=== PATIENT | female | born 1935 | race African-American/Black ===

== ENCOUNTER 2016-12-26 21:48 | Inpatient (IN) | payer MEDICARE, MEDICAID ==
[~2016-12-26] VITALS: Ht 157.5 cm; Wt 67.1 kg
[2016-12-26 23:30] VITALS: BP 133/78
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
[2016-12-27] MEDS ORDERED: MAG HYDROX/AL HYDROX/SIMETH 30 ML UDC PO PRN
[2016-12-27] MEDS ORDERED: ACETAMINOPHEN 325 MG TABLET PO PRN
[2016-12-27] MEDS ORDERED: LORAZEPAM 0.5 MG TABLET PO PRN
[2016-12-27] MEDS ORDERED: MAGNESIUM HYDROXIDE 30 ML UDC PO PRN
[2016-12-27] MEDS ORDERED: ALPR0.255 PO (00:27)
[2016-12-27] MEDS ORDERED: AMLO10TA4 PO (00:28)
[2016-12-27] MEDS ORDERED: ATOR10TA PO (00:31)
[2016-12-27] MEDS ORDERED: BUPR100T6 PO (00:31)
[2016-12-27] MEDS ORDERED: FURO-145 PO (00:32)
[2016-12-27] MEDS ORDERED: HYDR25TA4 PO (00:33)
[2016-12-27] MEDS ORDERED: MELO-264 PO (00:34)
[2016-12-27] MEDS ORDERED: LISI-607 PO (00:34)
[2016-12-27] MEDS ORDERED: MEMA10TA PO (00:35)
[2016-12-27] MEDS ORDERED: METF500T4 PO (00:36)
[2016-12-27] MEDS ORDERED: METO-304 PO (00:37)
[2016-12-27] MEDS ORDERED: NITR0.4T SL (00:38)
[2016-12-27] MEDS ORDERED: QUET25TA PO (00:39)
[2016-12-27] MEDS ORDERED: NITROGLYCERIN 0.4 MG/TAB BOTTLE SL PRN (01:00)
[2016-12-27 06:38] LABS: BASOPHILS % (AUTO) 0.2 % (0.0-2.0); HEMATOCRIT 33 % (33-45); HEMOGLOBIN 11.2 g/dL (11.5-14.8); LYMPHOCYTES # (AUTO) 0.8 /CMM (0.8-4.8); LYMPHOCYTES % (AUTO) 20.5 % (20.0-44.0); MEAN CORPUSCULAR HEMOGLOBIN 30 PG (26.0-33.0); MEAN CORPUSCULAR HGB CONC 34 g/dl (31.0-36.0); MEAN CORPUSCULAR VOLUME 88 fL (82-100); MONOCYTES # (AUTO) 0.5 /CMM (0.1-1.30); MONOCYTES % (AUTO) 12.1 % (2.0-12.0); NEUTROPHILS # (AUTO) 2.6 /CMM (1.8-8.9); NEUTROPHILS % (AUTO) 66.2 % (43.0-81.0); PLATELET COUNT (AUTO) 174 /CMM (150-450); RDW COEFFICIENT OF VARIATION 15.5 (11.5-15.0); RED BLOOD CELL COUNT(AUTO) 3.77 MIL/uL (4.0-5.2); WHITE BLOOD COUNT (AUTO) 3.9 K/uL (4.3-11.0)
[2016-12-27 06:47] LABS: CHOLESTEROL 171 mg/dL (<200); HDL CHOLESTEROL 59 mg/dL (40-60); LDL 102 mg/dL (0-99); TRIGLYCERIDES 32 mg/dL (30-150)
[2016-12-27 07:16] LABS: ALANINE AMINOTRANSFERASE 18 U/L (12-78); ALBUMIN 3.5 g/dL (3.4-5.0); ALKALINE PHOSPHATASE 74 U/L (46-116); ASPARTATE AMINOTRANSFERASE 17 U/L (15-37); BILIRUBIN,TOTAL 0.6 mg/dL (0.2-1.0); CALCIUM, SERUM 9.8 mg/dL (8.5-10.1); CARBON DIOXIDE 27 mmol/L (21-32); CHLORIDE 110 mmol/L (98-107); GLUCOSE 82 mg/dL (74-106); POTASSIUM 3.5 mmol/L (3.5-5.1); SODIUM SERUM 148 mmol/L (136-145); TOTAL PROTEIN, SERUM 7.2 g/dL (6.4-8.2); UREA NITROGEN, BLOOD 15 mg/dL (7-18)
[2016-12-27 08:15] VITALS: BP 110/78
[2016-12-27] MEDS: METFORMIN 500 MG TABLET PO SCH ×2 (09:23→17:17)
[2016-12-27] MEDS: FUROSEMIDE 20 MG TABLET PO SCH (09:23)
[2016-12-27] MEDS: ATORVASTATIN 10 MG TABLET PO SCH (09:23)
[2016-12-27] MEDS: AMLODIPINE BESYLATE 10 MG TABLET PO SCH (09:24)
[2016-12-27] MEDS: LISINOPRIL (5MG) 5 MG TABLET PO SCH (09:25)
[2016-12-27] MEDS: METOPROLOL SUCCINATE 50 MG TAB.SR.24H PO SCH (09:25)
[2016-12-27] MEDS: MELOXICAM 7.5 MG TABLET PO SCH (09:31)
[2016-12-27 15:56] VITALS: BP 101/61
--- NOTE | 2016-12-27 16:12 | NUR ---
Initial Discharge Plan Patient lives at [id number] [place] [address], [address] [place] [address] and wishes to return upon discharge. VALENTINE attemped to contact patient's daughter, Micki Jefferson at [phone], but was unable to get a hold of her. VALENTINE left a voicemail with detailed contact information. VALENTINE will work with MD and care team to form a safe and proper discharge. VALENTINE will also provide referrals to [facility] for patient,as she is a smoker.
[2016-12-27 20:11] VITALS: BP 91/53
[2016-12-27] MEDS: DIVALPROEX SODIUM 125 MG TABLET.DR PO SCH (21:49)
[2016-12-27] MEDS: QUETIAPINE FUMARATE 25 MG TABLET PO SCH (21:49)
[2016-12-28 07:39] LABS: BASOPHILS % (AUTO) 0.3 % (0.0-2.0); EOSINOPHILS # (AUTO) 0.1 /CMM (0.0-0.7); EOSINOPHILS % (AUTO) 1.6 % (0.0-6.0); HEMATOCRIT 31 % (33-45); HEMOGLOBIN 10.4 g/dL (11.5-14.8); LYMPHOCYTES # (AUTO) 0.8 /CMM (0.8-4.8); LYMPHOCYTES % (AUTO) 23.5 % (20.0-44.0); MEAN CORPUSCULAR HEMOGLOBIN 30 PG (26.0-33.0); MEAN CORPUSCULAR HGB CONC 34 g/dl (31.0-36.0); MEAN CORPUSCULAR VOLUME 88 fL (82-100); MONOCYTES # (AUTO) 0.5 /CMM (0.1-1.30); MONOCYTES % (AUTO) 13.5 % (2.0-12.0); NEUTROPHILS # (AUTO) 2.1 /CMM (1.8-8.9); NEUTROPHILS % (AUTO) 61.1 % (43.0-81.0); PLATELET COUNT (AUTO) 162 /CMM (150-450); RDW COEFFICIENT OF VARIATION 15.2 (11.5-15.0); RED BLOOD CELL COUNT(AUTO) 3.52 MIL/uL (4.0-5.2); WHITE BLOOD COUNT (AUTO) 3.4 K/uL (4.3-11.0)
[2016-12-28 08:01] LABS: CALCIUM, SERUM 9.3 mg/dL (8.5-10.1); CARBON DIOXIDE 28 mmol/L (21-32); CHLORIDE 105 mmol/L (98-107); CREATININE 1.1 mg/dL (0.6-1.3); GLUCOSE 75 mg/dL (74-106); MAGNESIUM 1.6 mg/dL (1.8-2.4); PHOSPHORUS 2.6 mg/dL (2.5-4.9); SODIUM SERUM 140 mmol/L (136-145); UREA NITROGEN, BLOOD 17 mg/dL (7-18)
[2016-12-28 08:12] VITALS: BP 98/58
[2016-12-28] MEDS: DIVALPROEX SODIUM 125 MG TABLET.DR PO SCH ×2 (08:35→21:01)
[2016-12-28] MEDS: FUROSEMIDE 20 MG TABLET PO SCH (08:36)
[2016-12-28] MEDS: ATORVASTATIN 10 MG TABLET PO SCH (08:36)
[2016-12-28] MEDS: MELOXICAM 7.5 MG TABLET PO SCH (08:36)
[2016-12-28] MEDS: AMLODIPINE BESYLATE 10 MG TABLET PO SCH (09:00)
[2016-12-28] MEDS ORDERED: NICOTINE PATCH (14MG) 14 MG PATCH.TD24 TD SCH ×2 (09:00)
[2016-12-28] MEDS: NICOTINE PATCH (7MG) 7 MG PATCH.TD24 TD SCH (09:50)
[2016-12-28] MEDS: LISINOPRIL (5MG) 5 MG TABLET PO SCH (10:00)
[2016-12-28] MEDS: METOPROLOL SUCCINATE 50 MG TAB.SR.24H PO SCH (10:00)
[2016-12-28] MEDS: METFORMIN 500 MG TABLET PO SCH ×2 (10:28→16:27)
[2016-12-28 10:30] LABS: EOSINOPHILS % (MANUAL) 2 % (0-4); LYMPHOCYTES % (MANUAL) 19 % (16-48); MONOCYTES % (MANUAL) 12 % (0-11.0); NEUTROPHILS % (MANUAL) 67 (42-76)
[2016-12-28] MEDS ORDERED: MAGNESIUM OXIDE 400 MG TABLET PO ONE (11:30)
--- NOTE | 2016-12-28 15:31 | NUR ---
VALENTINE spoke to pt's daughter Micki Jefferson at [phone] who stated that she cannot take care of her mother any longer due to her increased needs, as well as agitated behavior. She requested that SW look into facilities in the [facility]. VALENTINE faxed over the following facilities: [facility] Address: [address] [place] [address] [facility] [address] [place] [address] fax: [phone] [facility] Address: [address] [place] [address] fax: [phone] VALENTINE will follow up in the morning.
--- NOTE | 2016-12-28 15:55 | NUR ---
SW heard back from Shirley from [facility] [address], [place], [place] [id number] fax: [phone] who stated that their facility does not have a behavioral unit. However, Shirley stated that she will forward the inquiry to their sister facility in [place], who does accept psych patients.
[2016-12-28 16:00] VITALS: BP 95/59
[2016-12-28 19:57] VITALS: BP 117/60
[2016-12-28] MEDS: QUETIAPINE FUMARATE 25 MG TABLET PO SCH (21:01)
[2016-12-28] MEDS: TEMAZEPAM 7.5 MG CAPSULE PO PRN (21:02)
[2016-12-29] MEDS: METFORMIN 500 MG TABLET PO SCH ×2 (08:35→16:31)
[2016-12-29] MEDS: NICOTINE PATCH (7MG) 7 MG PATCH.TD24 TD SCH (08:35)
[2016-12-29] MEDS: ATORVASTATIN 10 MG TABLET PO SCH (08:35)
[2016-12-29] MEDS: FUROSEMIDE 20 MG TABLET PO SCH (08:35)
[2016-12-29] MEDS: LISINOPRIL (5MG) 5 MG TABLET PO SCH (08:36)
[2016-12-29] MEDS: METOPROLOL SUCCINATE 50 MG TAB.SR.24H PO SCH (08:36)
[2016-12-29] MEDS: MELOXICAM 7.5 MG TABLET PO SCH (08:36)
[2016-12-29] MEDS: DIVALPROEX SODIUM 125 MG TABLET.DR PO SCH ×2 (08:36→21:38)
[2016-12-29] MEDS: AMLODIPINE BESYLATE 10 MG TABLET PO SCH (08:37)
[2016-12-29 08:48] VITALS: BP 104/70
[2016-12-29 09:12] LABS: CALCIUM, SERUM 10.1 mg/dL (8.5-10.1); CARBON DIOXIDE 29 mmol/L (21-32); CHLORIDE 104 mmol/L (98-107); GLUCOSE 89 mg/dL (74-106); MAGNESIUM 1.8 mg/dL (1.8-2.4); POTASSIUM 4.2 mmol/L (3.5-5.1); SODIUM SERUM 141 mmol/L (136-145); UREA NITROGEN, BLOOD 18 mg/dL (7-18)
--- NOTE | 2016-12-29 10:38 | NUR ---
Pt's daughter Micki Jefferson at [phone] contacted SW and stated that the family is now willing to take patient home, but asked SW to provide resources for SNFs, adult daycare facilities and community resources. SW will provide. Micki stated that she can pick her mother up at 5pm on Monday.
[2016-12-29 16:23] VITALS: BP 114/67
[2016-12-29] MEDS: QUETIAPINE FUMARATE 25 MG TABLET PO SCH (21:38)
[2016-12-29] MEDS: TEMAZEPAM 7.5 MG CAPSULE PO PRN (21:38)
[2016-12-30 08:00] VITALS: BP 152/84
[2016-12-30] MEDS: MELOXICAM 7.5 MG TABLET PO SCH (09:25)
[2016-12-30] MEDS: METFORMIN 500 MG TABLET PO SCH ×2 (09:25→16:06)
[2016-12-30] MEDS: ATORVASTATIN 10 MG TABLET PO SCH (09:25)
[2016-12-30] MEDS: NICOTINE PATCH (7MG) 7 MG PATCH.TD24 TD SCH (09:25)
[2016-12-30] MEDS: DIVALPROEX SODIUM 125 MG TABLET.DR PO SCH ×2 (09:25→21:40)
[2016-12-30] MEDS: FUROSEMIDE 20 MG TABLET PO SCH (09:26)
[2016-12-30] MEDS: AMLODIPINE BESYLATE 10 MG TABLET PO SCH (09:27)
[2016-12-30] MEDS: METOPROLOL SUCCINATE 50 MG TAB.SR.24H PO SCH (09:27)
[2016-12-30] MEDS: LISINOPRIL (5MG) 5 MG TABLET PO SCH (09:28)
[2016-12-30] MEDS: TEMAZEPAM 7.5 MG CAPSULE PO PRN (21:40)
[2016-12-30] MEDS: QUETIAPINE FUMARATE 25 MG TABLET PO SCH (21:40)
--- NOTE | 2016-12-30 22:40 | NUR ---
GPS-RN PT'S BLOOD PRESSURE 75/58 [facility]. FLUIDS GIVEN. PT TOLERATED WELL. PLACED PT ON [place] POSITION. PAGED DR. DRAPER REGARDING PT'S CONDITION. AWAITING TO CALL BACK. WILL CONTINUE TO MONITOR FOR SAFETY.
--- NOTE | 2016-12-30 23:07 | NUR ---
GPS RN SPOKE TO DR. DRAPER. ORDERED TO HOLD METOPROLOL 50MG PO, LASIX 20MG PO AT 0900AM. RECHECK BLOOD PRESSURE AFTER AN HOUR. NOTED AND CARRIED OUT. WILL CONTINUE TO MONITOR.
[2016-12-31 08:00] VITALS: BP 120/70
[2016-12-31] MEDS: NICOTINE PATCH (7MG) 7 MG PATCH.TD24 TD SCH (08:42)
[2016-12-31] MEDS: METFORMIN 500 MG TABLET PO SCH ×2 (08:43→18:17)
[2016-12-31] MEDS: ATORVASTATIN 10 MG TABLET PO SCH (08:43)
[2016-12-31] MEDS: DIVALPROEX SODIUM 125 MG TABLET.DR PO SCH ×3 (08:43→21:36)
[2016-12-31] MEDS: LISINOPRIL (5MG) 5 MG TABLET PO SCH (08:43)
[2016-12-31] MEDS: FUROSEMIDE 20 MG TABLET PO SCH (08:43)
[2016-12-31] MEDS: MELOXICAM 7.5 MG TABLET PO SCH (08:43)
[2016-12-31] MEDS: METOPROLOL SUCCINATE 50 MG TAB.SR.24H PO SCH (08:44)
[2016-12-31] MEDS: AMLODIPINE BESYLATE 10 MG TABLET PO SCH (08:45)
[2016-12-31 16:00] VITALS: BP 94/57
[2016-12-31 20:00] VITALS: BP 125/78
[2016-12-31] MEDS: QUETIAPINE FUMARATE 25 MG TABLET PO SCH (21:36)
[2017-01-01 08:00] VITALS: BP 124/79
[2017-01-01] MEDS: METOPROLOL SUCCINATE 50 MG TAB.SR.24H PO SCH (09:00)
[2017-01-01] MEDS: FUROSEMIDE 20 MG TABLET PO SCH (09:34)
[2017-01-01] MEDS: NICOTINE PATCH (7MG) 7 MG PATCH.TD24 TD SCH (09:34)
[2017-01-01] MEDS: METFORMIN 500 MG TABLET PO SCH ×2 (09:34→16:45)
[2017-01-01] MEDS: MELOXICAM 7.5 MG TABLET PO SCH (09:34)
[2017-01-01] MEDS: DIVALPROEX SODIUM 125 MG TABLET.DR PO SCH ×3 (09:34→21:15)
[2017-01-01] MEDS: ATORVASTATIN 10 MG TABLET PO SCH (09:34)
[2017-01-01] MEDS: LISINOPRIL (5MG) 5 MG TABLET PO SCH (09:35)
[2017-01-01] MEDS: AMLODIPINE BESYLATE 10 MG TABLET PO SCH (09:35)
[2017-01-01 16:00] VITALS: BP 101/56
[2017-01-01] MEDS: QUETIAPINE FUMARATE 25 MG TABLET PO SCH (21:15)
[2017-01-01 22:52] VITALS: BP 118/85
[2017-01-02 08:00] VITALS: BP 160/93
[2017-01-02] MEDS: DIVALPROEX SODIUM 125 MG TABLET.DR PO SCH ×3 (08:08→21:47)
[2017-01-02] MEDS: FUROSEMIDE 20 MG TABLET PO SCH (08:08)
[2017-01-02] MEDS: ATORVASTATIN 10 MG TABLET PO SCH (08:09)
[2017-01-02] MEDS: METFORMIN 500 MG TABLET PO SCH ×2 (08:09→16:17)
[2017-01-02] MEDS: MELOXICAM 7.5 MG TABLET PO SCH (08:09)
[2017-01-02] MEDS: AMLODIPINE BESYLATE 10 MG TABLET PO SCH (08:09)
[2017-01-02] MEDS: METOPROLOL SUCCINATE 50 MG TAB.SR.24H PO SCH (08:10)
[2017-01-02] MEDS: NICOTINE PATCH (7MG) 7 MG PATCH.TD24 TD SCH (08:10)
[2017-01-02] MEDS: LISINOPRIL (5MG) 5 MG TABLET PO SCH (08:10)
[2017-01-02 16:16] VITALS: BP 122/67
--- NOTE | 2017-01-02 16:34 | NUR ---
VALENTINE contacted pt's daughter Micki Jefferson at [phone] and left a voicemail with contact information. VALENTINE informed Micki that her mother was ready for discharge in the next two days, according to the doctor and asked for Micki to give her a call back.
[2017-01-02 19:58] VITALS: BP 109/60
[2017-01-02] MEDS: QUETIAPINE FUMARATE 25 MG TABLET PO SCH (21:47)
[2017-01-03 08:00] VITALS: BP 104/60
[2017-01-03] MEDS: NICOTINE PATCH (7MG) 7 MG PATCH.TD24 TD SCH (08:38)
[2017-01-03] MEDS: MELOXICAM 7.5 MG TABLET PO SCH (08:38)
[2017-01-03] MEDS: ATORVASTATIN 10 MG TABLET PO SCH (08:38)
[2017-01-03] MEDS: METFORMIN 500 MG TABLET PO SCH ×2 (08:39→17:23)
[2017-01-03] MEDS: FUROSEMIDE 20 MG TABLET PO SCH (08:39)
[2017-01-03] MEDS: LISINOPRIL (5MG) 5 MG TABLET PO SCH ×2 (08:40→17:23)
[2017-01-03] MEDS: DIVALPROEX SODIUM 125 MG TABLET.DR PO SCH ×3 (08:40→21:55)
[2017-01-03] MEDS: AMLODIPINE BESYLATE 10 MG TABLET PO SCH ×2 (08:40→17:23)
[2017-01-03] MEDS: METOPROLOL SUCCINATE 50 MG TAB.SR.24H PO SCH (08:41)
--- NOTE | 2017-01-03 14:37 | NUR ---
SW spoke with patient and informed her that her daughter will pick her up tomorrow to take her home. Patient was agreeable.
[2017-01-03 15:39] VITALS: BP_SYST 110; BP_SYST 115; BP_DIAS 59; BP_DIAS 72
[2017-01-03 20:04] VITALS: BP 146/80
[2017-01-03] MEDS: QUETIAPINE FUMARATE 25 MG TABLET PO SCH (21:55)
[2017-01-04 08:00] VITALS: BP 107/61
[2017-01-04] MEDS: FUROSEMIDE 20 MG TABLET PO SCH (08:33)
[2017-01-04] MEDS: METFORMIN 500 MG TABLET PO SCH ×2 (08:33→17:48)
[2017-01-04] MEDS: DIVALPROEX SODIUM 125 MG TABLET.DR PO SCH ×2 (08:33→17:48)
[2017-01-04] MEDS: MELOXICAM 7.5 MG TABLET PO SCH (08:34)
[2017-01-04] MEDS: NICOTINE PATCH (7MG) 7 MG PATCH.TD24 TD SCH (08:35)
[2017-01-04] MEDS: ATORVASTATIN 10 MG TABLET PO SCH (08:36)
[2017-01-04] MEDS: AMLODIPINE BESYLATE 10 MG TABLET PO SCH (09:00)
[2017-01-04] MEDS: METOPROLOL SUCCINATE 50 MG TAB.SR.24H PO SCH (09:00)
[2017-01-04] MEDS: LISINOPRIL (5MG) 5 MG TABLET PO SCH (09:00)
--- NOTE | 2017-01-04 11:09 | NUR ---
Discharge Note: Patient will be discharged to back home to [address], [address] [place] [address] with her daughter. Patients daughter, Micki Jefferson [phone], will be transporting patient back home in private vehicle at 9:30pm. Patient will follow up with her primary care physician, Dr. Conde [address] [place] [address] [phone] the following week, 01/10/17. Patient does not have a psychiatrist and so a referral was made to [facility] [address] [facility] . Patient was encouraged to follow up and set appointment times. Patient was also provided additional resources for mental health services: [facility] [address] [place] and [facility] [address] [place] . As patients daughter wanted her mother to be more involved in the community, the following resources were also provided: [facility] [address] [facility] to [facility] [address] [facility] Day Care [facility] [address] [place] [address] [facility] Day [facility] [address] [facility] Senior Comedy Afternoons : Comedy show by seniors, for seniors [address] [place] [address] [place] [employer] via the [facility] A senior club, the [employer] meet each Monday from 9am - noon in the [facility] Room. Membership is $3.00 a year. Age is 55 and older, and [place] residency is required. For further information call . The [employer] provides an enjoyable and beneficial recreation opportunity in as great a variety as possible for the benefit of senior citizens in the community. The following nursing homes were also provided to family, as it might be an option for patient later on: [facility] Address: [address] [place] [address] [facility] [address] [place] [address] fax: [phone] [facility] Address: [address] [place] [address] fax: [phone]
[2017-01-04 16:00] VITALS: BP 100/52
--- NOTE | 2017-01-04 21:13 | NUR ---
DISCHARGE NOTES PT. DISCHARGE HOME IN STABLE CONDITION, NO ACUTE DISTRESS NOTED, ,AND PT. DISCHARGE WITH ALL BELONGINGS ,NO ACUTE DISTRESS NOTED V/S IN STABLE, PT. PICKED BY DAUGHTER,
== END 2017-01-04 21:26 | disposition home or self-care (01) | DRG 885 ==
LOC: GPS 23:06
PROVIDERS: ADMIT Psychiatry & Neurology Psychiatry; ATTEND Internal Medicine
DX: F39 Unspecified mood [affective] disorder (principal); F03.91 Unspecified dementia, unspecified severity, with behavioral disturbance; E11.9 Type 2 diabetes mellitus without complications; F23 Brief psychotic disorder; E78.5 Hyperlipidemia, unspecified; F41.9 Anxiety disorder, unspecified; I10 Essential (primary) hypertension; I25.10 Atherosclerotic heart disease of native coronary artery without angina pectoris; Z73.6 Limitation of activities due to disability; F29 Unspecified psychosis not due to a substance or known physiological condition; Z79.84 Long term (current) use of oral hypoglycemic drugs
CPT/HCPCS: 36415; 80048-TC; 80053-TC; 80061-TC; 82962-TC; 83735-TC; 84100-TC; 85025-TC; 87081-TC